=== PATIENT | female | born 2000 | race Caucasian/White ===

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

== ENCOUNTER 2024-09-04 16:17 | Outpatient (REF) | payer MEDICAID, SELFPAY ==
[2024-09-04 18:12] LABS: Appearance Urine Turbid; Color Urine Yellow; Glucose Urine UA Negative (Negative); Leukocyte Esterase Urine Small (1+) (Negative); Nitrite Urine Negative (Negative); PH 7.5 (5.0-9.0); UMIC TRIGGER UACC YES; Urine Blood Negative (Negative); Urine Ketones Negative (Negative); Urine Protein Negative (Neg-Trace)
[2024-09-04 18:19] LABS: Basophils Percent Auto 0.3 % (0-2); Monocytes Absolute Auto 0.4 X10*3/uL (0.1-1.2); SCAN SMEAR FLAG 1
[2024-09-04 18:21] LABS: Eosinophils Absolute Auto 0.2 X10*3/uL (0.0-0.4); Eosinophils Percent Auto 2.5 % (0-4); Hematocrit 38.3 % (37.0-47.0); Hemoglobin 12.4 g/dl (12.0-16.0); Imm Gran Abs Auto 0.02 X10*3/uL (0.00-0.03); Imm Gran Pct Auto 0.3 % (0.0-0.4); Lymphocytes Absolute Auto 2.5 X10*3/uL (1.2-4.9); Lymphocytes Percent Auto 41.9 % (20-40); MANUAL DIFF FLAG SCAN; Mean Corpuscular HGB Conc 32.4 g/dl (31.0-35.0); Mean Corpuscular Hemoglobin 27.5 pg (27.0-33.0); Mean Corpuscular Volume 84.9 fL (80.0-98.0); PLT CLUMP 1; Red Blood Count 4.51 X10*6/uL (4.20-5.50); Red Cell Distribution Width 14.5 % (11.0-16.0)
[2024-09-04 18:22] LABS: Bacteria Urine None Seen (None Seen); Hyaline Casts Urine 0-2 /LPF (0-2); RBC Urine 0-2 /HPF (0-2); UACC Culture Trigger YES; WBC Urine 0-5 /HPF (0-5)
[2024-09-04 18:28] LABS: PLT ABN DIST 1
[2024-09-04 18:37] LABS: Alanine Aminotransferase 26 U/L (0-31); Albumin Level 4.8 g/dL (3.5-5.0); Alkaline Phosphatase 62 U/L (39-117); Anion Gap 9 (12-20); Aspartate Amino Transferase 37 U/L (5-31); Bilirubin Total 0.6 mg/dL (0.0-1.0); Blood Urea Nitrogen 7 mg/dL (9-16); Calcium 9.6 mg/dL (8.4-10.2); Carbon Dioxide 27 mmol/L (22-29); Chloride 110 mmol/L (96-108); Estimated Glomerular Filt Rate > 60; Glucose Random 79 mg/dL (60-115); Sodium 142 mmol/L (135-145); Total Protein 7.2 g/dL (6.5-8.0)
--- OUTSIDE RECORDS SUMMARY | 2024-09-04 18:58 | XMS_ITS | Encounter Summary ---
Author Organization [employer] Address [address] [place] [address] Care Team Providers Care Stratigraphy Teacher Name Role Phone Davida Kitchen MD Primary Care Provider [phone] Encounter Details Date Type Department Care Team ([facility] st Contact Info) Description 09/04/2024 Orders Only [facility] MEDICINE [address] [place], [place] [id number] Davida Kitchen MD [address] [place] [address] Epigastric pain (Primary Dx); Vaginal discharge Social History Tobacco Use Types Packs/Day Years Used Date Smoking Tobacco: Every Day Cigarettes Passive Smoke Exposure: Current Smokeless Tobacco: Never Depression Answer Date Recorded Patient Health Questionnaire-9 Score 20 07/13/2022 Housing Stability Answer Date Recorded What is your housing situation today? I do not have housing (Staying with others, in a hotel, in a alf, living outside on the street, on a beach, in a car, or in a park 01/02/[address] you li ve. Do you have problems with any of the following? None of the above 01/02/2023 Food Insecurity Answer Date Recorded Within the past 12 months, y ou worried that your food would run out before you got money to buy more: Sometimes True 2022 Within the past 12 months,th e food you bought just didn't last and you didn't have enough money to get more: Sometimes True 01/13/2023 Transportation Answer Date Recorded In the past 12 months, has l ack of transportation kept you from medical appts, meetings, work or from getting things needed for daily living? Yes, it has kept me from medical appointments or getting medications. 01/02/2023 Utilities Answer Date Recorded In the past 12 months, has t he electric, gas, oil or water company threatened to shut off services in your home? No 01/13/2023 Depression Answer Date Recorded Patient Health Questionnaire-2 Score 4 07/13/2022 Internet Access Answer Date Recorded Internet Access Q1 Yes 01/11/2024 Internet Access Q2 Not on file 01/11/2024 Comments Unknown Sex and Gender Information Value Date Recorded Sex Assigned at Female 01/25/2022 10:19 AM EDT Legal Sex Female 10:19 AM EDT Gender Identity Female 01/25/2022 10:19 AM EDT Sexual Orientation Straight 01/25/2022 10 :19 AM EDT documented as of this encounter Plan of Treatment Pending Results Name Type Priority Associated Diagnoses Date /Time CBC auto differential Lab Routine Epigastric pain 09/04/2024 4:20 PM EDT Scheduled Orders Name Type Priority Associated Diagnoses Orde r Schedule Syphilis Screen Lab Routine Vaginal discharge Expected: 09/04/2024 (Approximate), Expires: 09/04/2025 Hepatitis C Antibody with Reflex to HCV, RNA, Quantitative, Real-Time PCR Lab Routine Vaginal discharge Expected: 09/04/2024 (Approximate), Expires: 09/04/2025 Chlamydia/N. Gonorrhoeae RNA, TMA, Urogenitial Microbiology Routine Vaginal discharge Expected: 09/04/2024 (Approximate), Expires: 09/04/2025 HIV-1/2 Antigen and Antibodies, Fourth Generation, with Reflexes Lab Routine Vaginal discharge Expected: 09/04/2024 (Approximate), Expires: 09/04/2025 Hepatitis B surface antigen, EIA Lab Routine Vaginal discharge Expected: 09/04/2024 (Approximate), Expires: 09/04/2025 Helicobacter pylori??Antigen, EIA, Stool Lab Routine Epigastric pain Expected: 09/04/2024 (Approximate), Expires: 09/04/2025 documented as of this encounter Procedures Procedure Name Priority Date/Time Associated Diagnosis Comments URINALYSIS, COMPLETE, WITH REFLEX TO CULTURE Routine 09/04/2024 4:20 PM EDT Vaginal discharge CBC WITH AUTO DIFFERENTIAL Routine 09/04/2024 4:20 PM EDT Epigastric pain COMPREHENSIVE METABOLIC PANEL Routine 09/04/2024 4:20 PM EDT Epigastric pain documented in this encounter Results * (ABNORMAL) Comprehensive Metabolic Panel (09/04/2024 4:20 PM EDT) Sodium 142 135 - 145 mmol/L [facility] Potassium 4.0 3.3 - 5.1 mmol/L [facility] Chloride 110(H) 96 - 108 mmol/L [facility] Carbon Dioxide 27 22 - 29 mmol/L [facility] Anion Gap 9(L) 12 - 20 [facility] Urea Nitrogen (BUN) 7(L) 9 - 16 mg/dL [facility] Creatinine, Serum 0.65 0.5 - 1.4 mg/dL [facility] Estimated Glomerular Filt Rate >60 [facility] Comment:Chronic Kidney Disea se: Estimated GFR < 60 mL/min/[id number] Kidney Disease: Estimated GFR < 15 mL/min/1.73m2 Glucose 79 60 - 115 mg/dL [facility] Calcium 9.6 8.4 - 10.2 mg/dL [facility] Bilirubin, Total 0.6 0.0 - 1.0 mg/dL [facility] Aspartate Amino Transferase 37(H) 5 - 31 U/L [facility] Alanine Aminotransferase 26 0 - 31 U/L [facility] Total Protein 7.2 6.5 - 8.0 g/dL [facility] Albumin Level 4.8 3.5 - 5.0 g/dL [facility] Alkaline Phosphatase 62 39 - 117 U/L [facility] Blood Venous blood specimen / Unknown 09/04/2024 4:20 PM EDT 09/04/2024 6:04 PM EDT us Davida Kitchen MD LAB BLOOD ORDERABLES Final Resul t [facility] [address] [place] [address] [phone] * (ABNORMAL) Urinalysis, Complete, with Reflex to Culture (09/04/2024 4:20 PM EDT) Color Urine Yellow [facility] Appearance Urine Turbid [facility] PH 7.5 5.0 - 9.0 [facility] Glucose Urine UA Negative Negative mg/dL [facility] Urine Blood Negative Negative [facility] Specific [place] - Urine 1.010 1.005 - 1.025 [facility] Urine Protein Negative Neg-Trace mg/dL [facility] Urine Ketones Negative Negative mg/dL [facility] Nitrite Urine Negative Negative [facility] Leukocyte Esterase Urine Small (1+)(A) Negative [facility] RBC Urine 0-2 0 - 2 /HPF [facility] Urine WBC 0-5 0 - 5 /HPF [facility] Urine Squamous Epithelial Cell 3-5 0 - 2 /HPF [facility] Urine Bacteria None Seen None Seen [facility] Hyaline Casts, Urine 0-2 0 - 2 /LPF [facility] Urine 09/04/2024 4:20 PM EDT 09/04/2024 5:52 PM EDT Narrative [facility] - 09/04/2024 6:22 PM EDT Urine, Clean Catch Davida Kitchen MD LAB URINE ORDERABLES Final Resul t [facility] [address] [place] [address] [phone] documented in this encounter Visit Diagnoses Diagnosis Epigastric pain- Primary Abdominal pain, epigastric Vaginal discharge Leukorrhea, not specified as infective documented in this encounter Additional Health Concerns Assessment Noted Time PHQ-9 Depression Total Score: 20 023 10:11 AM EDT documented as of this encounter Care Teams Stratigraphy Teacher Relationship Specialty Start Date End Date Davida Kitchen MD [address] [place] [phone] PCP - General Family Medicine 05/01/12 documented as of this encounter
[2024-09-04 19:13] LABS: Platelet Count 142 X10*3/uL (160-400)
[2024-09-04 19:14] LABS: SLIDE REVIEW VERIFIED
[2024-09-05 03:03] LABS: CT PCR NOT DETECTED (Not Detect.); NG PCR NOT DETECTED (Not Detect.)
[2024-09-05 08:15] LABS: HBsAGNum1 0.42 S/CO (0.00-0.99); HIV AB/AG Nonreactive (Nonreactive); HIV Num 1 0.06 S/CO (0.00-0.99); Hepatitis B Surface Antigen Negative (Negative); ~HepC Num1 0.13 S/CO (0.00-0.79); ~Hepatitis C Antibody Nonreactive (Nonreactive)
[2024-09-05 08:36] LABS: Syphilis Screen Nonreactive (Nonreactive)
== END 2024-09-04 16:18 | disposition home or self-care (01) ==
LOC: HO.HHCL 16:17
PROVIDERS: Visit Provider Family Medicine
DX: N89.8 Other specified noninflammatory disorders of vagina (principal); R10.13 Epigastric pain
CPT/HCPCS: 80053; 81001; 85025; 86780; 86803; 87086; 87340; 87389; 87491; 87591